=== PATIENT | female | born 1955 | race Hispanic/Latino ===

== ENCOUNTER 2018-02-15 15:39 | Emergency (ER) | payer MEDICARE ==
[~2018-02-15] VITALS: Ht 160 cm; Wt 99.8 kg
[2018-02-15 17:45] VITALS: BP 125/55
== END 2018-02-15 17:46 | disposition home or self-care (01) ==
LOC: FSED 15:39 → EDBD 15:39 → FSED 17:46
DX: T15.11XA Foreign body in conjunctival sac, right eye, initial encounter (principal); Y92.009 Unspecified place in unspecified non-institutional (private) residence as the place of occurrence of the external cause; I13.2 Hypertensive heart and chronic kidney disease with heart failure and with stage 5 chronic kidney disease, or end stage renal disease; I50.9 Heart failure, unspecified; N18.6 End stage renal disease; Z99.2 Dependence on renal dialysis; E11.22 Type 2 diabetes mellitus with diabetic chronic kidney disease
CPT/HCPCS: 99283

== ENCOUNTER 2020-05-07 15:14 | Observation (INO) | payer MEDICARE, OTHER ==
[~2020-05-07] VITALS: Ht 160 cm; Wt 127.0 kg
[2020-05-07] MEDS ORDERED: SODIUM CHLORIDE 0.9% 1000ML 1,000 ML IV STA (15:27)
--- NOTE | 2020-05-07 15:31 | Emergency Department Note ---
History of Present Illnes History of Present Illness Chief Complaint: General Medicine Complaints History of Present Illness This is a 65 year old female presents to the ED for weakness and diarrheal illness of one week duration .Patient was recently admitted and discharged for similiar issue Arrival Mode: [place] Onset (how long ago): week(s) (1) Radiation: Reports abdomen Severity: moderate Onset quality: gradual Duration (how long): week(s) Timing of current episode: constant Progression: worsening Chronicity: new Context: Reports recent illness Relieving factors: none Exacerbating factors: none Associated symptoms: Reports weakness Treatments prior to arrival: none Past Medical/Family History Physician Review I have reviewed the patient's past medical and family history. Any updates have been documented here. Past Medical History Recent Fever: No Clinical Suspicion of Infectio: Yes New/Unexplained Change in Ment: No Past Medical History: Hypertension, Diabetes, CHF, CAD, Hemodyalisis, Hyperlipe demia, Chronic Kidney Disease Past Surgical History: Cholecysctectomy, CABG Other Surgery: DIALYSIS STENT CYST REMOVED FROM [facility] Social History Smoking Cessation: Never Smoker Alcohol Use: None Any Illegal Drug Use: No Other Last Tetanus: UTD Review of Systems Review of Systems Constitutional: Reports weakness EENTM: Reports no symptoms Cardiovascular: Reports no symptoms Respiratory: Reports no symptoms Gastrointestinal: Reports abdominal pain, Reports diarrhea Genitourinary: Reports no symptoms Musculoskeletal: Reports no symptoms Integumentary: Reports no symptoms Neurological: Reports no symptoms Psychological: Reports no symptoms Endocrine: Reports no symptoms Hematological/Lymphatic: Reports no symptoms Physical Exam Related Data Allergies: Coded Allergies: No Known Allergies (Unverified , 02/15/18) Triage Vital Signs Vital Signs Date Time Temp Pulse Resp B/P (MAP) Pulse Ox O2 Delivery O2 Flow Rate FiO2 05/07/20 15:27 97.3 87 18 122/68 97 05/08/20 04:05 2.0 05/08/20 11:09 Room Air Vital signs reviewed: Yes Physical Exam CONSTITUTIONAL Constitutional: Present morbidly obese, Present ill appearing HENT HENT: Present normocephalic, Present atraumatic, Present oropharynx clear/moist, Present nose normal HENT L/R: Present left ext ear normal, Present right ext ear normal EYES Eyes: Reports PERRL, Reports conjunctivae normal NECK Neck: Present ROM normal PULMONARY Pulmonary: Present effort normal, Present breath sounds normal CARDIOVASCULAR Cardiovascular: Present regular rhythm, Present heart sounds normal, Present capillary refill normal, Present normal rate GASTROINTESTINAL Abdominal: Present soft, Present nontender, Present bowel sounds normal, Present distension GENITOURINARY Genitourinary: Present exam deferred SKIN Skin: Present warm, Present dry MUSCULOSKELETAL Musculoskeletal: Present ROM normal NEUROLOGICAL Neurological: Present alert, Present oriented x 3, Present no gross motor or sensory deficits PSYCHOLOGICAL Psychological: Present mood/affect normal, Present judgement normal Results Laboratory Lab results reviewed: Yes Laboratory comments Laboratory Tests Test 05/07/20 20:38 White Blood Count 10.45 x10e3/uL (4.8-10.8) Red Blood Count 4.81 x10e6/uL (3.6-5.1) Hemoglobin 13.9 g/dL (12.0-16.0) Hematocrit 46.0 % (34.2-44.1) Mean Corpuscular Volume 95.6 fL (81-99) Mean Corpuscular Hemoglobin 28.9 pg (28-32) Mean Corpuscular Hemoglobin Concent 30.2 g/dL (31-35) Red Cell Distribution Width 15.7 % (11.7-14.4) Platelet Count 254 x10e3/uL (140-360) Neutrophils (%) (Auto) 74.7 % (38.7-80.0) Lymphocytes (%) (Auto) 16.3 % (18.0-39.1) Monocytes (%) (Auto) 7.9 % (4.4-11.3) Eosinophils (%) (Auto) 0.3 % (0.0-6.0) Basophils (%) (Auto) 0.3 % (0.0-1.0) Neutrophils # (Auto) 7.8 (2.1-6.9) Lymphocytes # (Auto) 1.7 (1.0-3.2) Monocytes # (Auto) 0.8 (0.2-0.8) Eosinophils # (Auto) 0.0 (0.0-0.4) Basophils # (Auto) 0.0 (0.0-0.1) Absolute Immature Granulocyte (auto 0.05 x10e3/uL (0-0.1) Sodium Level 135 mmol/L (136-145) Potassium Level 2.9 mmol/L (3.5-5.1) Chloride Level 92 mmol/L (98-107) Carbon Dioxide Level 21 mmol/L (22-29) Anion Gap 24.9 mmol/L (8-16) Blood Urea Nitrogen 35 mg/dL (7-26) Creatinine 12.38 mg/dL (0.57-1.11) Estimat Glomerular Filtration Rate 3 ML/MIN (60-) BUN/Creatinine Ratio 3 (6-25) Glucose Level 354 mg/dL (74-118) Calcium Level 7.5 mg/dL (8.4-10.2) Total Bilirubin 0.6 mg/dL (0.2-1.2) Aspartate Amino Transf (AST/SGOT) 28 IU/L (5-34) Alanine Aminotransferase (ALT/SGPT) 28 IU/L (0-55) Alkaline Phosphatase 288 IU/L (40-150) B-Type Natriuretic Peptide 61.5 pg/mL (0-100) Total Protein 8.2 g/dL (6.5-8.1) Albumin 2.5 g/dL (3.5-5.0) Globulin 5.7 g/dL (2.3-3.5) Albumin/Globulin Ratio 0.4 (0.8-2.0) Lipase 28 U/L (8-78) Imaging Imaging results reviewed: Yes Impressions [place] [address] Patient Name: KAYLA US MR #: [id number] : 1955 Age/Sex: 65/F Req #: [id number] Adm Physician: Ordered by: CALVIN PAIZ DO Report #: [id number] Location: ER Room/Bed: Procedure: [id number] CT/CT ABDOMEN/PELVIS WO Exam Date: 05/07/20 Exam Time: 2140 REPORT STATUS: Signed EXAM: CT Abdomen and Pelvis WITHOUT contrast INDICATION: ^diarrheal illness ^[id number] ^2139 COMPARISON: None. TECHNIQUE: Abdomen and pelvis were scanned utilizing a multidetector helical scanner from the lung base to the pubic symphysis without administration of IV contrast. Absence of intravenous contrast decreases sensitivity for detection of focal lesions and vascular pathology. Coronal and sagittal reformations were obtained. Routine protocol was performed. IV CONTRAST: None ORAL CONTRAST: None COMPLICATIONS: None RADIATION DOSE: Total DLP: 642 mGy*cm Estimated effective dose: (DLP x 0.015 x size factor) mSv CTDIvol has been reviewed. It is below the limits set by the Radiation Protocol Committee (RPC). Dose modulation, iterative reconstruction, and/or weight based adjustment of the mA/kV was utilized to reduce the radiation dose to as low as reasonably achievable. FINDINGS: LINES and TUBES: None. A peritoneal dialysis catheter terminates in the right lower quadrant. LOWER THORAX: Coronary artery calcifications. Wedge-shaped opacity of the right lung base. HEPATOBILIARY: No focal hepatic lesions. No biliary ductal dilation. GALLBLADDER: Surgically absent. SPLEEN: No splenomegaly. PANCREAS: No focal masses or ductal dilatation. ADRENALS: 2.3 cm right adrenal nodule, likely an adenoma. 1.1 cm left adrenal nodule, also likely an adenoma. KIDNEYS/URETERS: Small size of both kidneys. No hydronephrosis. No cystic or solid mass lesions. No stones. GI TRACT: No abnormal distention, wall thickening, or evidence of bowel obstruction. Sigmoid diverticulosis. Appendix is normal. PELVIC ORGANS/BLADDER: Unremarkable. LYMPH NODES: No lymphadenopathy. VESSELS: Diffuse atherosclerotic arterial calcifications. PERITONEUM / RETROPERITONEUM: Scattered free intraperitoneal air within the anterior abdomen, notably anterior to the liver. No free fluid. BONES: No acute osseous abnormality. SOFT TISSUES: Small fat-containing hernia along the tract of the peritoneal dialysis catheter. Small amount of air within the hernia adjacent to the catheter. Small periumbilical hernia. IMPRESSION: 1. Scattered abdominal free intraperitoneal air. Benign intraperitoneal air may be seen with peritoneal dialysis; however, viscus perforation is also possible. Continued follow-up is recommended. 2. Bilateral adrenal nodules, presumably adenomas. 3. Wedge-shaped opacity of the right lung base most likely represents atelectasis or scarring. Pneumonia may appear similar. 4. Sigmoid diverticulosis. Signed by: Drake Peterson MD on 05/07/2020 10:19 PM Dictated By: DRAKE PETERSON MD 18 Transcribed By: LISHA on 05/07/202218 COPY TO: CALVIN PAIZ DO~ Assessment & Plan Medical Decision Making MDM Diff Dx : COVID-19 infection, sepsis, CBC, CMP, UA and CTS ordered to r/o appendicitis, diverticulitis, UTI, kidney stone, perforated viscus, obstruction, ischemia, and biliary pathology Depart Disposition: ADMITTED Home Meds Reported Medications Promethazine Hcl (PROMETHAZINE HCL) 25 Mg Tablet, 25 MG PO BID PRN for ALLERGY, TAB 05/08/20 Aspirin (ASPIR 81) 81 Mg Tablet.dr, DAILY 05/08/20 Midodrine Hcl (MIDODRINE HCL) 5 Mg Tablet, 5 MG PO DAILY for blood pressure , TAB TAKE 1 TAB 30 MIN BEFORE DIALYSIS 1 DURING AND 1 AFTER 05/08/20 Tramadol Hcl (ULTRAM) 50 Mg Tablet, 50 MG PO DAILY for pain, TAB 05/08/20 Cinacalcet Hcl (SENSIPAR) 30 Mg Tablet, 90 MG PO DAILY, #30 TAB 05/08/20 Apixaban (Eliquis) 5 Mg Tablet, BID 05/08/20 Pantoprazole Sodium (PROTONIX) 20 Mg Tablet.dr, 40 MG PO BID, #60 TAB 05/08/20 Atorvastatin Calcium (ATORVASTATIN CALCIUM) 20 Mg Tablet, 80 MG PO HS, #30 TAB 05/08/20 Medications in the ED Sodium Chloride 1,000 ml @ 0 mls/hr Q0M STAT IV ; Start 05/07/20 at 15:27; Stop 05/07/20 at 15:30; Status DC CALVIN PAIZ DO May 07, 2020 15:31
--- NOTE | 2020-05-07 17:54 | NUR ---
REFUSED MULTIPLE IV SITES. INFORMED PT OF NEED FOR LABS, PT REFUSED ONLY WANTING IN PLACE WHERE 2 RN'S SAW NO ACCESS. WILL CALL LAB TO COME DRAW PT.
[2020-05-07] MEDS ORDERED: DIATRIZOATE MEGL/DIATRIZOA SOD 30 ML BTL PO ONE (20:16)
[2020-05-07 20:49] LABS: BASOPHILS % 0.3 % (0.0-1.0); EOSINOPHILS % 0.3 % (0.0-6.0); HEMOGLOBIN 13.9 g/dL (12.0-16.0); LYMPHOCYTES # (AUTO) 1.7 (1.0-3.2); LYMPHOCYTES % 16.3 % (18.0-39.1); MEAN CORPUSCULAR HEMOGLOBIN 28.9 pg (28-32); MEAN CORPUSCULAR HGB CONC 30.2 g/dL (31-35); MEAN CORPUSCULAR VOLUME 95.6 fL (81-99); MONOCYTES # (AUTO) 0.8 (0.2-0.8); MONOCYTES % 7.9 % (4.4-11.3); NEUTROPHILS # (AUTO) 7.8 (2.1-6.9); NEUTROPHILS % 74.7 % (38.7-80.0); PLATELET COUNT 254 x10e3/uL (140-360); RED BLOOD COUNT 4.81 x10e6/uL (3.6-5.1); RED CELL DISTRIBUTION WIDTH 15.7 % (11.7-14.4)
[2020-05-07 21:27] LABS: ALBUMIN 2.5 g/dL (3.5-5.0); ALBUMIN/GLOBULIN RATIO 0.4 (0.8-2.0); ANION GAP 24.9 mmol/L (8-16); CALCIUM 7.5 mg/dL (8.4-10.2); CREATININE, SERUM 12.38 mg/dL (0.57-1.11)
[2020-05-07 21:29] LABS: POTASSIUM 2.9 mmol/L (3.5-5.1)
--- NOTE | 2020-05-07 22:22 | Diagnostic Imaging Report ---
EXAM: CT Abdomen and Pelvis WITHOUT contrast INDICATION: ^diarrheal illness ^[id number] ^2139 COMPARISON: None. TECHNIQUE: Abdomen and pelvis were scanned utilizing a multidetector helical scanner from the lung base to the pubic symphysis without administration of IV contrast. Absence of intravenous contrast decreases sensitivity for detection of focal lesions and vascular pathology. Coronal and sagittal reformations were obtained. Routine protocol was performed. IV CONTRAST: None ORAL CONTRAST: None COMPLICATIONS: None RADIATION DOSE: Total DLP: 642 mGy*cm Estimated effective dose: (DLP x 0.015 x size factor) mSv CTDIvol has been reviewed. It is below the limits set by the Radiation Protocol Committee (RPC). Dose modulation, iterative reconstruction, and/or weight based adjustment of the mA/kV was utilized to reduce the radiation dose to as low as reasonably achievable. FINDINGS: LINES and TUBES: None. A peritoneal dialysis catheter terminates in the right lower quadrant. LOWER THORAX: Coronary artery calcifications. Wedge-shaped opacity of the right lung base. HEPATOBILIARY: No focal hepatic lesions. No biliary ductal dilation. GALLBLADDER: Surgically absent. SPLEEN: No splenomegaly. PANCREAS: No focal masses or ductal dilatation. ADRENALS: 2.3 cm right adrenal nodule, likely an adenoma. 1.1 cm left adrenal nodule, also likely an adenoma. KIDNEYS/URETERS: Small size of both kidneys. No hydronephrosis. No cystic or solid mass lesions. No stones. GI TRACT: No abnormal distention, wall thickening, or evidence of bowel obstruction. Sigmoid diverticulosis. Appendix is normal. PELVIC ORGANS/BLADDER: Unremarkable. LYMPH NODES: No lymphadenopathy. VESSELS: Diffuse atherosclerotic arterial calcifications. PERITONEUM / RETROPERITONEUM: Scattered free intraperitoneal air within the anterior abdomen, notably anterior to the liver. No free fluid. BONES: No acute osseous abnormality. SOFT TISSUES: Small fat-containing hernia along the tract of the peritoneal dialysis catheter. Small amount of air within the hernia adjacent to the catheter. Small periumbilical hernia. IMPRESSION: 1. Scattered abdominal free intraperitoneal air. Benign intraperitoneal air may be seen with peritoneal dialysis; however, viscus perforation is also possible. Continued follow-up is recommended. 2. Bilateral adrenal nodules, presumably adenomas. 3. Wedge-shaped opacity of the right lung base most likely represents atelectasis or scarring. Pneumonia may appear similar. 4. Sigmoid diverticulosis. Signed by: Brian Belle MD on 05/07/2020 10:19 PM
[2020-05-07 22:43] LABS: CREATINE KINASE MB 3.9 ng/mL (0-5.0)
[2020-05-07] MEDS ORDERED: POTASSIUM CHLORIDE 20 MEQ TAB CR PO STA (23:29)
[2020-05-08] MEDS ORDERED: INSULIN REGULAR, HUMAN 100 UNIT/1 ML 3ML VIAL IV SCH (00:30)
[2020-05-08] MEDS ORDERED: SODIUM CHLORIDE 0.9% 1000ML 1,000 ML ONE (01:19)
[2020-05-08] MEDS ORDERED: POTASSIUM CHLORIDE 20 MEQ TAB CR PO STA (01:55)
[2020-05-08 04:23] LABS: ALBUMIN 2.4 g/dL (3.5-5.0); ALBUMIN/GLOBULIN RATIO 0.5 (0.8-2.0); ANION GAP 20.9 mmol/L (8-16); CALCIUM 7.1 mg/dL (8.4-10.2); CREATININE, SERUM 12.49 mg/dL (0.57-1.11)
[2020-05-08 04:50] LABS: POTASSIUM 2.9 mmol/L (3.5-5.1)
[2020-05-08] MEDS ORDERED: POTASSIUM CHLORIDE 20 MEQ TAB CR PO ONE (05:11)
[2020-05-08] MEDS ORDERED: INSULIN REGULAR, HUMAN 3ML VL 100 UNIT in SODIUM CHLORIDE 0.9% 100 ML 99 ML IV STA ×2 (05:12)
--- NOTE | 2020-05-08 05:27 | NUR ---
DR DAWKINS PAGED ABOUT CRITICAL LABS AT THIS TIME. AWAITING CALL BACK.
[2020-05-08] MEDS ORDERED: POTASSIUM CHLORIDE 10MEQ EA PO ONE (08:15)
[2020-05-08] MEDS ORDERED: DEXTROSE 50% SYRINGE 50 ML IV PRN (08:45)
--- NOTE | 2020-05-08 09:30 | NUR ---
PT TO THE FLOOR AT THIS TIME. VITALS WNL. PT DENIES NEEDS AT THIS TIME.
[2020-05-08 10:00] VITALS: BP 165/80
[2020-05-08] MEDS: SODIUM CHLORIDE 0.9% 1000ML 1,000 ML IV SCH ×2 (10:33→19:06)
[2020-05-08 11:09] VITALS: BP 148/72
[2020-05-08] MEDS: INSULIN REGULAR, HUMAN 100 UNIT/1 ML 3ML VIAL SQ SCH ×3 (11:30→20:53)
[2020-05-08 12:00] VITALS: BP 165/80
[2020-05-08] MEDS ORDERED: SENSIPAR30 MG PO (13:05)
[2020-05-08] MEDS ORDERED: ELIQUIS5 MG (13:05)
[2020-05-08] MEDS ORDERED: MIDODRINE HCL5 MG PO (13:05)
[2020-05-08] MEDS ORDERED: ATORVASTATIN CA20 MG PO (13:05)
[2020-05-08] MEDS ORDERED: PROMETHAZINE HC25 M1 PO (13:05)
[2020-05-08] MEDS ORDERED: ASPIR 8181 MG (13:05)
[2020-05-08] MEDS ORDERED: PROTONIX20 MG PO (13:05)
[2020-05-08] MEDS ORDERED: ULTRAM50 MG PO (13:05)
[2020-05-08 16:00] VITALS: BP 129/65
--- NOTE | 2020-05-08 16:04 | Diagnostic Imaging Report ---
EXAMINATION: Head CT HISTORY: Recent fall, patient on [place], near syncope COMPARISON: None. TECHNIQUE: Helical axial images of the head were obtained. Reformatted coronal and sagittal images from the axial data. Dose modulation, iterative reconstruction, and/or weight based adjustment of the mA/kV was utilized to reduce the radiation dose to as low as reasonably achievable. Image quality: Motion/streaking artifact limits the evaluation of the skull base and posterior cranial fossa. FINDINGS: Parenchyma: 1. No abnormal densities. 2. No mass or hemorrhage. No CT evidence of acute territorial vascular insult. Extra-axial spaces:No abnormal density. No extra-axial fluid collections Brain volume: Normal for age. Ventricles: No hydrocephalus or displacement. Arteries: Prominent atherosclerotic calcification of the intra and extracranial vessels. Dural sinuses: No abnormal density. Foramen magnum: No mass, Chiari malformation, or basilar invagination. Sella: No obvious mass. Paranasal/mastoid sinuses: Imaged portions unremarkable. Skull/Scalp: No lytic or blastic lesions. Minimal right forehead soft tissue swelling, no underlying fractures.. IMPRESSION: 1. Minimal right forehead soft tissue swelling, no underlying fractures. 2. No acute post traumatic intracranial abnormalities, particularly no hemorrhage. Signed by: Dr. Christen Rand M.D. on 05/08/2020 4:01 PM
[2020-05-08 16:34] LABS: BASOPHILS # (AUTO) 0.1 (0.0-0.1); BASOPHILS % 0.5 % (0.0-1.0); EOSINOPHILS # (AUTO) 0.2 (0.0-0.4); HEMATOCRIT 42.4 % (34.2-44.1); HEMOGLOBIN 12.9 g/dL (12.0-16.0); LYMPHOCYTES # (AUTO) 2.1 (1.0-3.2); LYMPHOCYTES % 19.8 % (18.0-39.1); MEAN CORPUSCULAR HEMOGLOBIN 29.1 pg (28-32); MEAN CORPUSCULAR HGB CONC 30.4 g/dL (31-35); MEAN CORPUSCULAR VOLUME 95.5 fL (81-99); MONOCYTES % 8.9 % (4.4-11.3); NEUTROPHILS # (AUTO) 7.4 (2.1-6.9); NEUTROPHILS % 68.2 % (38.7-80.0); PLATELET COUNT 229 x10e3/uL (140-360); RED BLOOD COUNT 4.44 x10e6/uL (3.6-5.1); RED CELL DISTRIBUTION WIDTH 15.4 % (11.7-14.4)
[2020-05-08 16:38] LABS: ANION GAP 22.6 mmol/L (8-16); POTASSIUM 4.6 mmol/L (3.5-5.1)
[2020-05-08 16:42] LABS: CALCIUM 6.5 mg/dL (8.4-10.2)
[2020-05-08] MEDS: CALCIUM CARBONATE 500 MG CHEWABLE TABS PO SCH (17:42)
[2020-05-08] MEDS: PANTOPRAZOLE SOD 40 MG TABEC PO SCH (17:42)
[2020-05-08] MEDS: ACETAMINOPHEN 325 MG TAB PO PRN (17:46)
--- NOTE | 2020-05-08 19:16 | NUR ---
DR. MCNEILL CALLED FOR CONSULT.
[2020-05-08 20:05] LABS: CREATINE KINASE MB 4.1 ng/mL (0-5.0)
--- NOTE | 2020-05-08 20:09 | History and Physical ---
PRIMARY CARE PHYSICIAN: Mary Lou Garrett MD CHIEF COMPLAINT: Generalized weakness, nausea, vomiting, and diarrhea, near syncope. HISTORY OF PRESENT ILLNESS: This is a 65-year-old female with past medical history of hypotension, high cholesterol, CAD, status post stent; atrial fibrillation, diabetes, and ESRD on PD, presented to the ER with complaints of near syncope, nausea, vomiting, and diarrhea for 1 week. She reports had recent fall 4 days ago due to dizziness. She has right eye bleeding and bruising. She is on Eliquis for atrial fibrillation. She reports has not been eating well due to the nausea, vomiting, and diarrhea. She denies any chest pain, palpitation, shortness of breath, cough, fever, or chills. In ER, she was noted to have hypokalemia with a potassium of 2.9 and creatinine of 12.38. CT abdomen and pelvis shows scattered abdominal free intraperitoneal air may be due to peritoneal dialysis. However, perforation is also a possibility. She also is noted to have wedge-shaped opacity of the lung with the right lung base, most likely represent atelectasis or scattered scarring, pneumonia, this may represent similar and sigmoid diverticulosis. PAST MEDICAL HISTORY: 1. End-stage renal disease, on peritoneal dialysis. 2. Diabetes. 3. High cholesterol. 4. CAD, status post stent. 5. Atrial fibrillation, on Eliquis. PAST SURGICAL HISTORY: 1. She reports cholecystectomy. 2. . 3. Cyst removal. 4. Stent x1 and fistula placement. FAMILY MEDICAL HISTORY: Reports mother has hypertension and father has kidney disease and diabetes. SOCIAL HISTORY: She reports smoking 6 cigarettes a day. Denies any alcohol or illicit use. ALLERGIES: NO KNOWN DRUG ALLERGIES. REVIEW OF SYSTEMS: Twelve-system reviewed and negative except as reported in HPI. PHYSICAL EXAMINATION: VITAL SIGNS: Temperature 97.8, pulse is 75, respirations 20, blood pressure 148/72, and pulse ox is 98% on room air. GENERAL: Fatigue. HEENT: Right eye hematoma noted due to week and fall. NECK: Supple. LUNGS: Decreased breath sounds. CARDIOVASCULAR: Regular rate and rhythm. GI: Soft, obese. Active bowel sounds. NEUROLOGIC: Alert, awake, and oriented x3. MUSCULOSKELETAL: Moves all extremities. SKIN: Dry. PSYCH: Calm. LABORATORY DATA: WBC 10.45, hemoglobin 13.9, and platelet 254. Sodium 140, potassium 2.9, creatinine 12.49. BUN is 36, estimated GFR is 3, blood glucose 168, calcium 7.1, troponin 0.069, BNP 61.5, albumin 2.4, globulin 5.1. Coronavirus PCR is pending. CT abdomen and pelvis shows scattered abdominal free intraperitoneal air due to peritoneal dialysis, has bilateral adrenal nodules, presumably adenoma, wedge-shaped opacity of the lung with the right lung base, most likely represent atelectasis or scarring, and sigmoid diverticulosis. IMPRESSION: 1. Syncope, associated with generalized weakness for the past 8 days or so. We will check CT brain. She had a recent fall, on blood thinners. Monitor on Tele. 2. End-stage renal disease, on PD. Nephrology has been consulted. 3. Hypokalemia. It could be from nausea, vomiting, and diarrhea. Replace. We will recheck in a.m. 4. Diabetes. Sliding scale insulin. 5. High cholesterol, on statin. 6. Coronary artery disease. On aspirin and statin. 7. History of atrial fibrillation. We will hold Eliquis due to her recent fall. Await on CT brain. 8. Debility. Physical therapy eval and treat. 9. Deep vein thrombosis prophylaxis. Was on Eliquis, we will hold due to recent fall. PLAN: Continue current treatment, dialysis today per Nephrology. GI symptoms are improving. Dictated by YOLI Moreno Araceli Stinson MD MY/MODL /[id number]
[2020-05-08] MEDS ORDERED: ATORVASTATIN 20 MG TAB PO SCH (21:00)
[2020-05-08] MEDS: ATORVASTATIN 40 MG TAB PO SCH (21:03)
[2020-05-08 21:19] VITALS: BP 143/78
[2020-05-08 21:45] VITALS: BP 143/78
[2020-05-09] VITALS (9 sets, daily range): BP systolic 116–162; BP diastolic 68–91
--- NOTE | 2020-05-09 02:11 | Diagnostic Imaging Report ---
EXAMINATION: CHEST SINGLE (PORTABLE) INDICATION: ^possible pnemonia ^[id number] ^2300 ^Y COMPARISON: None FINDINGS: AP view TUBES and LINES: None. LUNGS: Focal consolidation of the left lung base. Smaller subtle right lung base consolidation. The right lung is grossly clear. PLEURA: No pleural effusion or pneumothorax. HEART AND MEDIASTINUM: The cardiomediastinal silhouette is unremarkable. BONES AND SOFT TISSUES: No acute osseous lesion. Soft tissues are unremarkable. UPPER ABDOMEN: No free air under the diaphragm. IMPRESSION: Bibasilar airspace consolidations which may reflect atelectasis and/or pneumonia. Signed by: Brian Belle MD on 05/09/2020 2:08 AM
[2020-05-09] MEDS: ACETAMINOPHEN 325 MG TAB PO PRN ×2 (03:01→16:33)
--- NOTE | 2020-05-09 03:11 | Pulmonary Function Test ---
DATE OF STUDY: REFERRING PHYSICIAN: Initial Nephrology Consultation Report. BODY AFTER REPORT TITLE: REASON FOR CONSULTATION: Peritoneal dialysis, ESRD. HISTORY OF PRESENT ILLNESS: Ms. Pina is a 65-year-old female. She is morbidly obese. She presents to the hospital because of a near syncopal episode. She almost passed out, so she came to the emergency room. Some reports say that she also had some diarrhea as well. History is limited. PAST MEDICAL HISTORY: 1. The patient has a history of chronic kidney disease stage 5. She is on peritoneal dialysis. 2. Diabetes. 3. Hypertension. PAST SURGICAL HISTORY: Tenckhoff catheter placement. REVIEW OF SYSTEMS: As per HPI. PHYSICAL EXAMINATION: VITAL SIGNS: Blood pressure 148/72. GENERAL: The patient is obese. HEENT: No increased JVD. CARDIOVASCULAR: Regular rate and rhythm. LUNGS: Decreased breath sounds. ABDOMEN: The patient has a Tenckhoff catheter. EXTREMITIES: No edema. LABORATORY RESULTS: Sodium 140, potassium 2.9, chloride 98, bicarbonate 24, BUN and creatinine were 33 and 12.5 respectively. Calcium is 7.1, albumin is 2.4. IMPRESSION: 1. Chronic kidney disease stage 5. 2. Hypokalemia. 3. Hypocalcemia. 4. Presyncope. PLAN: The patient will be getting PD here. We will just use 1.5% solution since she is already probably dehydrated. We will do 5 exchanges. Her potassium has been replaced. We will give her some Tums to replace her calcium also. Ather MD LACY Tamez/STIVEN /[id number]
[2020-05-09] MEDS: SODIUM CHLORIDE 0.9% 1000ML 1,000 ML IV SCH (04:45)
[2020-05-09] MEDS: INSULIN REGULAR, HUMAN 100 UNIT/1 ML 3ML VIAL SQ SCH ×4 (07:30→21:00)
[2020-05-09] MEDS: ASPIRIN 81 MG CHEW TAB PO SCH (08:34)
[2020-05-09] MEDS: PANTOPRAZOLE SOD 40 MG TABEC PO SCH ×2 (08:34→16:32)
[2020-05-09] MEDS: CALCIUM CARBONATE 500 MG CHEWABLE TABS PO SCH ×2 (08:34→16:33)
[2020-05-09] MEDS ORDERED: CINACALCET 30 MG TAB PO SCH (09:00)
--- NOTE | 2020-05-09 14:59 | NUR ---
WENT AND SPOKE WITH PT ABOUT SNF ORDER, SHE STATES SHE WANTS TO GO HOME. SHE WENT ON TO CALL A FAMILY MEMBER AT HOME TO GET THE NAME OF THE HOME HEALTH SHE HAD SET UP PRIOR TO ADMISSION, SIGNED CHOICE FOR [facility] [phone], CALLED [facility] SHE STATES WAS DISCHARGED ON 04/12 BUT WILL ABSOLUTELY START NEW REFERRAL FOR READMISSION AND TO FAX CLINICALS AND ORDER TO [phone].
--- NOTE | 2020-05-09 15:49 | Progress Note ---
DATE: 05/09/2020 CONSULTANTS: 1. Dr. Tamez, Nephrology. 2. Dr. Kiser with Cardiology. CHIEF COMPLAINT: Generalized weakness, syncope with subsequent fall. SUBJECTIVE: She is seen in room with no acute distress. She reports she feels a little bit better, did not eat much because she does not like the food, but is not nauseous or throwing up. She denies any chest pain, shortness of breath, or fever. Had PD last night. PHYSICAL EXAMINATION: VITAL SIGNS: Temperature 97.8, pulse is 75, respirations 18, blood pressure 149/71, and pulse ox 98% on 2 L of nasal cannula. GENERAL: No acute distress. HEENT: Normocephalic. Bruising noted in the right eye due to recent fall. NECK: Supple. CARDIOVASCULAR: Regular rate and rhythm. LUNGS: Clear to auscultation. ABDOMEN: Soft and nontender. Obese. NEURO: Alert, awake, and oriented x3. Generalized weakness. MUSCULOSKELETAL: Moves all extremities. SKIN: Dry. Bruising on right eye. LABORATORY DATA: Labs from this morning are pending, not collected. CT brain, minimal right forehead soft tissue swelling, no underlying fractures. Chest x-ray shows bibasilar airspace consolidation which may reflect atelectasis or pneumonia. IMPRESSION: 1. Syncope with generalized weakness. She has had multiple falls. CT brain was negative for acute process. We will hold blood thinners due to high risk of falls. Physical therapy and Cardiology have been consulted. Echo with EF of 55%. 2. End-stage renal disease, on peritoneal dialysis. Nephrology has been consulted. 3. Hypokalemia. Improved with dialysis. 4. Diabetes, on sliding scale insulin. 5. High cholesterol, on statin. 6. History of coronary artery disease. On aspirin and statin. 7. Atrial fibrillation. Rate controlled. We will hold Eliquis, pending cardiology recommendations, due to high risk of falls. 8. Debility. Physical therapy to evaluate and treat. She reports has had multiple falls. 9. Deep venous thrombosis prophylaxis. We will hold Eliquis due to high risk of fall. PLAN: Continue current treatment, Cardiology and physical therapy to evaluate and await on their recommendations. Dictated by YOLI Moreno Yiching MD KALIN Rodriguez/STIVEN /[id number]
--- NOTE | 2020-05-09 19:00 | Consultation ---
DATE OF CONSULTATION: 05/09/2020 REASON FOR CONSULTATION: Near syncope. HISTORY OF PRESENT ILLNESS: This is a 65-year-old female with history of CAD, status post PCI in 2016, end-stage renal disease on PD therapy, paroxysmal atrial fibrillation, diabetes, hyperlipidemia, peripheral neuropathy. The patient presents to [facility] ER with complaints of nausea, vomiting, and syncope. Cardiology was consulted to evaluate the patient. The patient is seen in room, reports has had Ferrlecit for many months, near-syncope episodes with getting up, has been started on midodrine therapy by her ticket puller at [facility], Dr. Burns. States that for the past several days has been nauseous, vomiting, not eating, and intermittent diarrhea. Denies any fevers, chills, or night sweats. In fact, the patient went to [facility] in which she was there for several days with negative workup, was sent home. However, 2 days later on Wednesday, the patient was getting out of bed and fell, hitting her right eye. Continuing with nausea, poor appetite, weakness, and therefore called EMS and was brought to the ER. Denies any chest pain, shortness of breath. Main complaint is dizziness with standing up. PAST MEDICAL HISTORY: CAD, status post PCI in 2016, end-stage renal disease on PD therapy, paroxysmal atrial fibrillation, diabetes, hyperlipidemia, and peripheral neuropathy. SURGICAL HISTORY: PCI in 2016, left fistula that is nonfunctioning, cyst removal, , and cholecystectomy. FAMILY HISTORY: Positive for hypertension with her mother and father positive kidney disease and diabetes. SOCIAL HISTORY: Positive for tobacco use. Denies alcohol use. HOME MEDICATIONS: Include: 1. Atorvastatin 80 mg daily. 2. Midodrine 10 mg t.i.d. 3. Eliquis 5 mg b.i.d. 4. Aspirin 81 mg daily. 5. Protonix 40 mg daily. 6. Gabapentin 300 mg daily. ALLERGIES: NO KNOWN ALLERGIES. REVIEW OF SYSTEMS: GENERAL: Denies any weight changes. Positive for fatigue, weakness. Denies any fevers, chills, or night sweats. SKIN: No rashes. Positive for right eye bruise after falling this past Wednesday. HEENT: Positive for nausea and vomiting. Denies any blurred vision, double vision, epistaxis, sore throat, or swollen neck. CARDIAC: Denies any chest pains or palpitation. Positive for dyspnea on exertion. No orthopnea, PND, or lower extremity edema. RESPIRATORY: Denies any shortness of breath, wheezing, coughing, hemoptysis. GI: Reports poor appetite. Positive nausea, vomiting. Positive diarrhea. No melena or tarry bloody stools. VASCULAR: Denies any lower extremity edema or claudication. MUSCULOSKELETAL: Positive for muscle weakness. Positive for joint pains, back pain. NEUROLOGIC: Positive for lower extremity numbness and tingling. Positive for weakness. Positive for fainting on Wednesday. Denies any seizures. HEMATOLOGY: Denies any anemia. Positive for bruising. ENDOCRINE: Denies heat or cold intolerance, polyuria, polydipsia, or polyphagia. PHYSICAL EXAMINATION: VITAL SIGNS: Height 63 inches, weight 280 pounds. Current vital signs, temperature 97.8, pulse 75, respiratory rate 18, blood pressure 149/71, pulse ox 98% on room air. GENERAL: Appears stated age, reliable informant. No acute distress. SKIN: No rashes. Positive right eye bruise after falling on Wednesday. HEENT: Normocephalic. Pupils are equal and reactive. Extraocular movements intact. Trachea midline. NECK: No JVD. No carotid bruit. HEART: Regular rate and rhythm. Soft systolic murmur heard in the right upper sternal border. LUNGS: Bilateral breath sounds. Clear to auscultation. ABDOMEN: Soft, nontender. No organomegaly noted. However, the patient is obese. Positive PD catheter. MUSCULOSKELETAL: Good muscle strength throughout. No lower extremity edema noted. VASCULAR: +2 radial pulses bilaterally. +1 DP, PT pulses bilaterally. Also, she has a left arm fistula that is not working. NEUROLOGIC: Cranial nerves 2 through 12 seem intact. LABORATORY DATA: White count 10, hemoglobin of 12, hematocrit 42, platelets 229. Sodium 138, potassium 4.6, chloride 102, bicarb 18. BUN 40, creatinine , glucose 220. Troponin 0.06, 0.04. BNP of 61. DIAGNOSTIC DATA: Chest x-ray showing bibasilar airspace consolidation. CT of the head showing minimal right forehead soft tissue swelling. No fractures. No intracranial abnormalities. CT abdomen and pelvis, scattered abdominal free air intraperitoneally, which may be related to peritoneal dialysis, bilateral adrenal nodules, wedge- shaped opacity in the right lower base, and sigmoid diverticulosis. ASSESSMENT AND PLAN: 1. Nausea, vomiting, diarrhea. CT showing some diverticulosis. 2. Syncope episode. 3. Autonomic dysfunction. 4. Coronary artery disease, status post percutaneous coronary intervention. 5. History of paroxysmal atrial fibrillation. 6. Diabetes. PLAN: The patient presents with several days of weakness, fatigue, nausea, vomiting, diarrhea, had a syncopal episode on Wednesday, which she got up and fell hitting her right eye. However, dizziness, lightheadedness, nausea, vomiting, and diarrhea, came to the ER for further evaluation. The patient to follow up by Cardiology staff tomorrow, Dr. Burns. 1. Electrolyte violin management as per Renal service. 2. We would recommend liberalizing fluids and increase in liberalizing sodium intake. Recommend compression stockings. 3. . 4. Continue telemonitoring. At this time, patient is in sinus rhythm. No arrhythmias noted. I do recommend that the patient come off OAC therapy, given her repeated dizziness, lightheadedness , which seems to be autonomic dysfunction. However, we will leave this up to her primary ticket puller as an outpatient, but for now, here in the hospital, we will sought therapy given also her recent fall and right eye bruising. We will continue to monitor patient and adjust cardiac therapy as clinical course dictates. Thank you very much for this consult. Seen and evaluated Agree with note Dictated by Vamshi Chavez NP Billy Kiser MD DC/STIVEN /[id number] JOSE M
[2020-05-09] MEDS: ATORVASTATIN 40 MG TAB PO SCH (21:00)
[2020-05-10] VITALS: BP 166/86
[2020-05-10 04:00] VITALS: BP 145/76
[2020-05-10] MEDS: ACETAMINOPHEN 325 MG TAB PO PRN (05:00)
[2020-05-10 05:52] LABS: BASOPHILS % 0.5 % (0.0-1.0); EOSINOPHILS # (AUTO) 0.2 (0.0-0.4); HEMATOCRIT 40.4 % (34.2-44.1); HEMOGLOBIN 12.3 g/dL (12.0-16.0); LYMPHOCYTES # (AUTO) 1.8 (1.0-3.2); LYMPHOCYTES % 20.1 % (18.0-39.1); MEAN CORPUSCULAR HEMOGLOBIN 29.1 pg (28-32); MEAN CORPUSCULAR HGB CONC 30.4 g/dL (31-35); MEAN CORPUSCULAR VOLUME 95.5 fL (81-99); MONOCYTES # (AUTO) 0.7 (0.2-0.8); MONOCYTES % 8.3 % (4.4-11.3); NEUTROPHILS % 68.4 % (38.7-80.0); PLATELET COUNT 220 x10e3/uL (140-360); RED BLOOD COUNT 4.23 x10e6/uL (3.6-5.1); RED CELL DISTRIBUTION WIDTH 15.9 % (11.7-14.4)
[2020-05-10 06:15] LABS: ANION GAP 19.5 mmol/L (8-16); CALCIUM 7.2 mg/dL (8.4-10.2); CREATININE, SERUM 11.82 mg/dL (0.57-1.11); POTASSIUM 3.5 mmol/L (3.5-5.1)
[2020-05-10 06:51] LABS: CREATINE KINASE MB 2.9 ng/mL (0-5.0)
[2020-05-10 07:47] VITALS: BP 147/80
[2020-05-10] MEDS: PANTOPRAZOLE SOD 40 MG TABEC PO SCH (08:30)
[2020-05-10] MEDS: CALCIUM CARBONATE 500 MG CHEWABLE TABS PO SCH (08:31)
[2020-05-10] MEDS: INSULIN REGULAR, HUMAN 100 UNIT/1 ML 3ML VIAL SQ SCH ×2 (08:34→12:12)
[2020-05-10] MEDS: ASPIRIN 81 MG CHEW TAB PO SCH (08:36)
[2020-05-10 09:30] VITALS: BP 147/80
--- NOTE | 2020-05-10 11:51 | NUR ---
[facility]ERS FOR HOME HEALTH CARE PT REFUSING SNF CHOICE LETTER SIGNED FOR EVERARDO DOLAN PH: [phone] FAX: [phone] CALLED AND NOTIFIED ANSWERING SERVICE OF NEW REFERRAL FAXED ORDERS AND CLINICAL TO ABOVE NUMBER CONFIRMATION REC'D
[2020-05-10 12:17] VITALS: BP 149/75
--- NOTE | 2020-05-10 21:15 | Discharge Summary ---
PCP: Dr. Mary Lou Garrett. FINAL DISCHARGE DIAGNOSES: 1. Syncope with generalized weakness. 2. End-stage renal disease, on peritoneal dialysis. 3. Hypokalemia. 4. Diabetes. 5. High cholesterol. 6. History of coronary artery disease. 7. Atrial fibrillation. 8. Debility. CONSULTANTS: 1. Dr. Kiser with Cardiology. 2. Dr. Hameed with Nephrology. PROCEDURES: None. HISTORY: Per HPI. HOSPITAL COURSE: This is a 65-year-old female, who presented to the ER with complaints of worsening weakness and syncope with frequent falls. CT of the brain was negative for fracture or intracranial bleed. She was on Eliquis for her atrial fibrillation. Cardiology was consulted, recommend to hold blood thinners until seen by her nail technician teacher due to her high risk of falls. Nephrology was consulted for peritoneal dialysis. Her metabolic acidosis improved with dialysis. Physical therapy evaluated the patient, recommended inpatient rehab or skilled. The patient has refused and wants to go back home with home health. Advised the risk of high risk for falls, but refused placement. She is cleared by Cardiology and today states she is feeling much better, so we will send home on current medications to follow up with her PCP and nail technician teacher next week. PHYSICAL EXAMINATION: VITAL SIGNS: Temperature 98.1, pulse is 81, respirations 20, blood pressure 149/75, and pulse ox is 100% on room air. GENERAL: No acute distress. HEENT: Normocephalic and atraumatic. CARDIOVASCULAR: Regular rate and rhythm. LUNGS: Clear to auscultation. ABDOMEN: Soft, nontender, and obese. NEUROLOGIC: Alert, awake, and oriented x3. MUSCULOSKELETAL: Moves all extremities. SKIN: Dry. Bruising on the right eye, which is healing. CONDITION AT DISCHARGE: Improved and stable. DISCHARGE MEDICATIONS: Please see medication reconciliation list. Advised to hold Eliquis until she sees her nail technician teacher. FOLLOWUP: Follow up with PCP and Cardiology in 1 week. TIME SPENT: Total discharge time is 33 minutes. Dictated by YOLI Moreno Yiching Vick Stinson MD MY/MODL /[id number] cc: Mary Lou Garrett MD
== END 2020-05-10 15:19 | disposition home or self-care (01) ==
LOC: ER 16:45 → ERHOLD 23:15 → IMCU 05-08 10:20
PROVIDERS: ADMIT Internal Medicine; ATTEND Internal Medicine
DX: R55 Syncope and collapse (principal); E11.22 Type 2 diabetes mellitus with diabetic chronic kidney disease; I12.0 Hypertensive chronic kidney disease with stage 5 chronic kidney disease or end stage renal disease; E11.42 Type 2 diabetes mellitus with diabetic polyneuropathy; N18.6 End stage renal disease; Z99.2 Dependence on renal dialysis; E87.6 Hypokalemia; E78.00 Pure hypercholesterolemia, unspecified; I25.10 Atherosclerotic heart disease of native coronary artery without angina pectoris; I48.0 Paroxysmal atrial fibrillation; Z79.01 Long term (current) use of anticoagulants; R53.81 Other malaise; Z91.81 History of falling; Z95.5 Presence of coronary angioplasty implant and graft; Z90.49 Acquired absence of other specified parts of digestive tract; Z83.3 Family history of diabetes mellitus; Z82.49 Family history of ischemic heart disease and other diseases of the circulatory system; Z84.1 Family history of disorders of kidney and ureter; K57.30 Diverticulosis of large intestine without perforation or abscess without bleeding; Z11.59 Encounter for screening for other viral diseases; Z79.82 Long term (current) use of aspirin
CPT/HCPCS: 36415 ×4; 70450; 71045; 74176; 80048 ×2; 80053 ×2; 82040; 82550 ×3; 82553 ×3; 82948 ×3; 83690; 83880 ×2; 84484 ×3; 85025 ×3; 87635 ×2; 90935; 93041; 93306; 96372; 97110 ×2; 97116 ×2; 97139; 97162; 97530; G0378 ×4; J1817; J7030; S0164 ×3